=== PATIENT | female | born 1990 | race Caucasian/White ===

== ENCOUNTER 2019-08-21 15:33 | Emergency (ER) | payer OTHER ==
[~2019-08-21] VITALS: Ht 154.9 cm; Wt 70.8 kg
== END 2019-08-21 19:28 | disposition home or self-care (01) ==
LOC: ER 15:33
DX: Z77.21 Contact with and (suspected) exposure to potentially hazardous body fluids (principal)

== ENCOUNTER → 2020-04-05 | Outpatient (CLI) | payer OTHER | END | disposition home or self-care (01) | LOC: TOM 15:11 | PROVIDERS: ATTEND Internal Medicine Cardiovascular Disease | DX: Z13.89 Encounter for screening for other disorder (principal) ==

== ENCOUNTER 2020-04-10 10:43 | Outpatient (CLI) | payer OTHER | END 2020-04-10 10:57 | disposition home or self-care (01) | LOC: NUCLEAR 10:43 | PROVIDERS: ATTEND Internal Medicine Cardiovascular Disease | DX: R07.89 Other chest pain (principal) ==

== ENCOUNTER → 2020-04-11 07:09 | Outpatient (CLI) | payer OTHER | END | disposition home or self-care (01) | LOC: LAB 07:09 | PROVIDERS: ATTEND Internal Medicine Cardiovascular Disease | DX: I10 Essential (primary) hypertension (principal); E11.9 Type 2 diabetes mellitus without complications; E03.8 Other specified hypothyroidism; E78.2 Mixed hyperlipidemia; E55.9 Vitamin D deficiency, unspecified; M81.0 Age-related osteoporosis without current pathological fracture ==

== ENCOUNTER 2020-05-04 09:34 | Outpatient (CLI) | payer OTHER | END 2020-05-04 10:08 | disposition HB | LOC: RAD 09:34 | PROVIDERS: ATTEND Internal Medicine Cardiovascular Disease | DX: M54.5 Low back pain (principal); R07.89 Other chest pain; J44.9 Chronic obstructive pulmonary disease, unspecified ==

== ENCOUNTER → 2020-10-24 09:16 | Outpatient (CLI) | payer OTHER | END | disposition home or self-care (01) | LOC: LAB 09:16 | PROVIDERS: ATTEND Internal Medicine Cardiovascular Disease | DX: M19.90 Unspecified osteoarthritis, unspecified site (principal) ==

== ENCOUNTER 2021-02-08 08:00 | Outpatient (CLI) | payer OTHER | END 2021-02-08 08:30 | disposition home or self-care (01) | LOC: PPH VACUNA 08:00 | DX: Z23 Encounter for immunization (principal) ==

== ENCOUNTER → 2021-03-20 08:36 | Outpatient (CLI) | payer OTHER | END | disposition home or self-care (01) | LOC: LAB 08:36 | PROVIDERS: ATTEND Obstetrics & Gynecology | DX: O09.71 Supervision of high risk pregnancy due to social problems, first trimester (principal) ==

== ENCOUNTER → 2021-04-19 09:42 | Outpatient (CLI) | payer OTHER | END | disposition home or self-care (01) | LOC: LAB 09:42 | PROVIDERS: ATTEND Obstetrics & Gynecology | DX: O09.71 Supervision of high risk pregnancy due to social problems, first trimester (principal) ==

== ENCOUNTER 2021-04-20 15:47 | Emergency (ER) | payer OTHER ==
[~2021-04-20] VITALS: Ht 154.9 cm; Wt 71.2 kg
== END 2021-04-20 21:00 | disposition home or self-care (01) ==
LOC: ER 15:47
DX: E86.0 Dehydration (principal); R11.10 Vomiting, unspecified; B34.9 Viral infection, unspecified; T78.40XA Allergy, unspecified, initial encounter

== ENCOUNTER 2021-05-02 08:00 | Outpatient (CLI) | payer OTHER | END 2021-05-02 08:30 | disposition home or self-care (01) | LOC: PPH VACUNA 08:00 | PROVIDERS: ATTEND Emergency Medicine Pediatric Emergency Medicine | DX: Z23 Encounter for immunization (principal) ==

== ENCOUNTER 2021-07-03 06:27 | Day surgery (SDC) | payer OTHER | END 2021-07-03 15:55 | disposition home or self-care (01) | LOC: CIR.AMB 06:27 | PROVIDERS: ATTEND Obstetrics & Gynecology | DX: Z30.2 Encounter for sterilization (principal); Z30.432 Encounter for removal of intrauterine contraceptive device; Z20.822 Contact with and (suspected) exposure to COVID-19 ==

== ENCOUNTER 2021-07-22 06:42 | Outpatient (CLI) | payer OTHER | END 2021-07-22 06:48 | disposition home or self-care (01) | LOC: LAB 06:42 | PROVIDERS: ATTEND Internal Medicine Cardiovascular Disease | DX: I10 Essential (primary) hypertension (principal); E11.9 Type 2 diabetes mellitus without complications; E03.9 Hypothyroidism, unspecified; E78.2 Mixed hyperlipidemia; E55.9 Vitamin D deficiency, unspecified ==

== ENCOUNTER 2021-07-31 12:05 | Outpatient (CLI) | payer OTHER | END 2021-07-31 12:06 | disposition home or self-care (01) | LOC: SONOGRAMA 12:05 | PROVIDERS: ATTEND Internal Medicine Cardiovascular Disease | DX: M12.9 Arthropathy, unspecified (principal); M19.90 Unspecified osteoarthritis, unspecified site ==

== ENCOUNTER 2021-12-03 06:33 | Emergency (ER) | payer OTHER ==
[~2021-12-03] VITALS: Ht 154.9 cm; Wt 66.7 kg
== END 2021-12-03 09:15 | disposition home or self-care (01) ==
LOC: ER 06:33
DX: H66.90 Otitis media, unspecified, unspecified ear (principal); Z88.6 Allergy status to analgesic agent; Z91.040 Latex allergy status

== ENCOUNTER 2022-02-26 09:55 | Outpatient (CLI) | payer OTHER | END 2022-02-26 10:00 | disposition home or self-care (01) | LOC: PPH VACUNA 09:55 | PROVIDERS: ATTEND Emergency Medicine Pediatric Emergency Medicine | DX: Z23 Encounter for immunization (principal) ==

== ENCOUNTER 2022-02-28 11:06 | Outpatient (CLI) | payer OTHER | END 2022-02-28 11:07 | disposition home or self-care (01) | LOC: LAB 11:06 | PROVIDERS: ATTEND Obstetrics & Gynecology | DX: N39.0 Urinary tract infection, site not specified (principal) ==

== ENCOUNTER 2022-07-02 10:29 | Outpatient (CLI) | payer OTHER | END 2022-07-02 13:35 | disposition home or self-care (01) | LOC: LAB 10:29 | PROVIDERS: ATTEND Student in an Organized Health Care Education/Training Program | DX: J11.1 Influenza due to unidentified influenza virus with other respiratory manifestations (principal); Z20.822 Contact with and (suspected) exposure to COVID-19; R50.9 Fever, unspecified ==

== ENCOUNTER 2022-11-14 08:49 | Outpatient (CLI) | payer OTHER | END 2022-11-14 08:51 | disposition home or self-care (01) | LOC: LAB 08:49 | PROVIDERS: ATTEND Internal Medicine Cardiovascular Disease | DX: J11.1 Influenza due to unidentified influenza virus with other respiratory manifestations (principal); A49.3 Mycoplasma infection, unspecified site; Z20.822 Contact with and (suspected) exposure to COVID-19; J44.9 Chronic obstructive pulmonary disease, unspecified ==

== ENCOUNTER 2023-04-22 16:14 | Emergency (ER) | payer OTHER ==
[~2023-04-22] VITALS: Ht 154.9 cm; Wt 72.6 kg
== END 2023-04-22 18:03 | disposition home or self-care (01) ==
LOC: ER 16:14
DX: J06.9 Acute upper respiratory infection, unspecified (principal)

== ENCOUNTER 2023-12-27 09:57 | Emergency (ER) | payer OTHER ==
[~2023-12-27] VITALS: Ht 154.9 cm; Wt 77.1 kg
[2023-12-27] MEDS ORDERED: PROAIR RESPICL90 MCG (10:18)
[2023-12-27] MEDS ORDERED: SINGULAIR10 MG PO (10:19)
[2023-12-27] MEDS ORDERED: MONTELUKAST SODI4 M1 (10:19)
[2023-12-27] MEDS ORDERED: ALLERGY RELIE15.8 ML (10:19)
[2023-12-27 11:15] LABS: HEMOGLOBIN 13.7 g/dL (12.0-15.00); MEAN CELL VOLUME 89.3 fL (80.00-100.00); MEAN CORPUSCULAR HEMOGLOBIN 31.3 pg (27.00-32.0); MEAN CORPUSCULAR HGB CONC 35.1 g/dl (32.0-36.0); PLATELET COUNT 233 K/uL (150-450); RED BLOOD COUNT 4.36 M/uL (4.00-6.00); RED CELL DISTRIBUTION WIDTH 12.9 % (11.5-14.5)
== END 2023-12-27 12:30 | disposition home or self-care (01) ==
LOC: ER 09:58
DX: J45.901 Unspecified asthma with (acute) exacerbation (principal); B34.9 Viral infection, unspecified; Z91.040 Latex allergy status; Z88.6 Allergy status to analgesic agent; Z20.822 Contact with and (suspected) exposure to COVID-19